=== PATIENT | female | born 1990 | race Caucasian/White ===

== ENCOUNTER 2016-10-04 14:34 | Emergency (ER) | payer OTHER ==
[~2016-10-04] VITALS: Ht 154.9 cm; Wt 112.5 kg
[2016-10-04 15:05] VITALS: BP 138/91; PULSE 102; RESP 18; TEMP 98.2; O2SAT 98
[2016-10-04] MEDS ORDERED: NACL 0.9% 1,000 ML IV ONE (15:30)
[2016-10-04] MEDS ORDERED: DIPHENHYDRAMINE INJ 50 MG/ML VIAL IVP ONE (15:30)
[2016-10-04] MEDS ORDERED: FAMOTIDINE PF 20 MG/2 ML VIAL IVP ONE (15:30)
[2016-10-04] MEDS ORDERED: methylPREDNISolone SOD SUCC/PF 62.5 MG/ML VIAL IVP ONE (15:30)
--- NOTE | 2016-10-04 16:01 | NUR ---
PT AMBULATED TO [facility], BY SARAH DODD @[id number],
--- NOTE | 2016-10-04 16:22 | NUR ---
Assumed care of patient, introduced self.
[2016-10-04 17:25] VITALS: BP 147/71; PULSE 87; RESP 16; TEMP 98.1; O2SAT 98
--- NOTE | 2016-10-04 17:27 | NUR ---
Patient given written and verbal discharge instructions and verbalizes understanding. ER MD discussed with patient the results and treatment provided. Given copies of tests performed in ER. Patient in stable condition. ID arm band removed. IV catheter removed intact and dressing applied, no active bleeding. Rx of epi pen, benadryl, medrol given. Patient educated on pain management and to follow up with PMD. Pain Scale . Opportunity for questions provided and answered.
== END 2016-10-04 17:25 | disposition home or self-care (01) ==
LOC: SED 14:34
DX: L50.9 Urticaria, unspecified (principal); Z88.8 Allergy status to other drugs, medicaments and biological substances
CPT/HCPCS: 81025; 96361; 96374; 96375; 99284; J1200; J2930; J3490; J7030